=== PATIENT | male | born 1970 | race Caucasian/White ===

== ENCOUNTER 2017-11-22 21:50 | Inpatient (IN) | payer BC ==
[~2017-11-22] VITALS: Ht 175.3 cm; Wt 109.0 kg
[2017-11-22 21:54] VITALS: BP_SYST 125; PULSE 88; RESP 24; TEMP 97.6; O2SAT 98
[2017-11-22] MEDS ORDERED: SODIUM CHLOR 0.9% 1000 ML INJ 1,000 ML IV SCH (22:14)
[2017-11-22] MEDS ORDERED: ACETAMINOPHEN/HYDROcodone 325 MG/5 MG TAB PO ONE (22:15)
[2017-11-22] MEDS ORDERED: ONDANSETRON HCL 4 MG/2 ML VIAL IVP ONE (22:15)
[2017-11-22] MEDS ORDERED: KETOROLAC TROMETHAMINE 30 MG/ML (IVP) VIAL IV PUSH ONE (22:15)
--- NOTE | 2017-11-22 22:34 | PD ---
HPI Chief Complaint: Abdominal Pain Time Seen by Provider: 22:08 Travel History International Travel<30 days: No Contact w/Intl Traveler<30days: No Traveled to known affect area: No History of Present Illness HPI 47-year-old male that presents to the ED for evaluation of abdominal pain and possible kidney stone. Per patient his had bouts of this in the past. The patient is a history of kidney stones. Per patient he is patent with no issues. Per patient has had about 4 or this episodes in the past 2-1/2 months. Per patient he never got checked for the last 3 but this time she was concerned because he was running low of his Lortab which is prescribed for another condition. Per patient he is supposed to follow with her neurologist and actually is scheduled to have a CAT scan tomorrow to evaluate for his possible kidney stones. He states that currently his pain is 10 out of 10 as this mainly on the abdomen but mainly on the left side. Per patient he also lost in the flank. He denies any history of diverticulitis or any history of recent surgeries to the abdomen. No chest pain. No shortness of breath. Per patient he was concerned also because he started feeling nauseous and vomited a couple times. No bowel movement issues. No urinary issues. She does have a history of diabetes. Has no allergies to medication. Other medical issues at this time. Per patient pain is sharp. Nothing alleviates the pain at this time. PFSH Past Medical History Anxiety: Yes Depression: Yes High Cholesterol: Yes Diabetes: Yes Patient Takes Glucophage: No Diminished Hearing: Yes (DIMINISHED L EAR) Hypertension: Yes Kidney Stones: Yes Triglycerides - High: Yes Tetanus Vaccination: Unknown Influenza Vaccination: No Past Surgical History Cholecystectomy: Yes Ear Surgery: Yes (TUBES, CYST REMOVED AND BONES RECONSTRUCTED L EAR) Oral Surgery: Yes (WISDOM TEETH) Tonsillectomy: Yes Social History Alcohol Use: Yes (RARELY) Tobacco Use: No Substance Use: No Allergies-Medications (Allergen,Severity, Reaction): Coded Allergies: No Known Allergies (Unverified , 11/22/17) Reported Meds & Prescriptions Reported Meds & Active Scripts Active Reported Vascepa (Icosapent) 1 Gram Cap 2 Gm PO BID Lyrica (Pregabalin) 75 Mg Cap 75 Mg PO DAILY Losartan (Losartan Potassium) 25 Mg Tab 25 Mg PO DAILY Glyxambi (Empagliflozin-Linagliptin) 25-5 Mg Tab 1 Tab PO DAILY Hydrocodone-Acetaminophen 7.5-300 Mg Tab 1 Tab PO Q6H PRN Pramipexole (Pramipexole Dihydrochloride) 1 Mg Tab 1 Mg PO HS Pramipexole (Pramipexole Dihydrochloride) 0.5 Mg Tab 0.5 Mg PO DAILY Citalopram (Citalopram Hydrobromide) 40 Mg Tab 40 Mg PO HS Glimepiride 4 Mg Tab 4 Mg PO DAILY Take with breakfast or first main meal Atorvastatin (Atorvastatin Calcium) 10 Mg Tab 10 Mg PO HS Atenolol 50 Mg Tab 50 Mg PO BID Review of Systems Except as stated in HPI: all other systems reviewed are Neg Physical Exam Narrative GENERAL: SKIN: Warm and dry. HEAD: Atraumatic. Normocephalic. EYES: Pupils equal and round. No scleral icterus. No injection or drainage. ENT: No nasal bleeding or discharge. Mucous membranes pink and moist. Tongue is midline. No uvula deviation. NECK: Trachea midline. No JVD. CARDIOVASCULAR: Regular rate and rhythm. No murmurs, S3, S4. RESPIRATORY: No accessory muscle use. Clear to auscultation. Breath sounds equal bilaterally. GASTROINTESTINAL: Abdomen soft, non-tender, nondistended. Hepatic and splenic margins not palpable. No obvious CVA tenderness. MUSCULOSKELETAL: Extremities without clubbing, cyanosis, or edema. No obvious deformities. Full range of motion of the upper and lower extremities bilaterally. 2+ pulses bilaterally. NEUROLOGICAL: Awake and alert. No obvious cranial nerve deficits. Motor grossly within normal limits. Five out of 5 muscle strength in the arms and legs. Normal speech. PSYCHIATRIC: Appropriate mood and affect; insight and judgment normal. Data Data Last Documented VS Vital Signs Date Time Temp Pulse Resp B/P (MAP) Pulse Ox O2 Delivery O2 Flow Rate FiO2 11/22/17 21:54 97.6 88 24 125/ 98 Orders Orders Complete Blood Count With Diff (11/22/17 22:14) Comprehensive Metabolic Panel (11/22/17 22:14) Lipase (11/22/17 22:14) Lactic Acid (11/22/17 22:14) Urinalysis - C+S If Indicated (11/22/17 22:14) Ct Abd/Pel W/O Iv Contrast (11/22/17 22:14) Iv Access Insert/Monitor (11/22/17 22:14) Ecg Monitoring (11/22/17 22:14) Ondansetron Inj (Zofran Inj) (11/22/17 22:15) Sodium Chlor 0.9% 1000 Ml Inj (Ns 1000 M (11/22/17 22:14) Acetamin-Hydrocod 325-5 Mg ([place] 5-325 (11/22/17 22:15) Ketorolac Inj (Toradol Inj) (11/22/17 22:15) Morphine Inj (Morphine Inj) (11/22/17 23:00) Morphine Inj (Morphine Inj) (11/22/17 23:45) Admit Order (Ed Use Only) (11/23/17 ) Duty Manager / Telemetry BENJAMIN.Q8H (11/23/17 00:04) Diet Npo (11/23/17 Breakfast) Activity Bed Rest (11/23/17 00:04) Notify Dr: Other (11/23/17 00:04) Sodium Chlor 0.9% 1000 Ml Inj (Ns 1000 M (11/23/17 00:15) Thyroid Stimulating Hormone (11/22/17 22:40) Labs Laboratory Tests Test 11/22/17 22:40 White Blood Count 15.6 TH/MM3 Red Blood Count 5.02 MIL/MM3 Hemoglobin 16.0 GM/DL Hematocrit 42.4 % Mean Corpuscular Volume 84.6 FL Mean Corpuscular Hemoglobin 31.8 PG Mean Corpuscular Hemoglobin Concent 37.6 % Red Cell Distribution Width 14.9 % Platelet Count 390 TH/MM3 Mean Platelet Volume 7.2 FL Neutrophils (%) (Auto) 68.2 % Lymphocytes (%) (Auto) 20.8 % Monocytes (%) (Auto) 7.6 % Eosinophils (%) (Auto) 2.0 % Basophils (%) (Auto) 1.4 % Neutrophils # (Auto) 10.7 TH/MM3 Lymphocytes # (Auto) 3.2 TH/MM3 Monocytes # (Auto) 1.2 TH/MM3 Eosinophils # (Auto) 0.3 TH/MM3 Basophils # (Auto) 0.2 TH/MM3 CBC Comment AUTO DIFF Differential Total Cells Counted 100 Neutrophils % (Manual) 67 % Band Neutrophils % 3 % Lymphocytes % 14 % Monocytes % 9 % Eosinophils % 5 % Basophils % 1 % Neutrophils # (Manual) 11.1 TH/MM3 Myelocytes 1 % Differential Comment FINAL DIFF MANUAL Platelet Estimate NORMAL Platelet Morphology Comment NORMAL Red Cell Morphology Comment NORMAL Urine Color YELLOW Urine Turbidity CLEAR Urine pH 8.0 Urine Specific [place] 1.038 Urine Protein TRACE mg/dL Urine Glucose (UA) 1000 mg/dL Urine Ketones 40 mg/dL Urine Occult Blood NEG Urine Nitrite NEG Urine Bilirubin NEG Urine Urobilinogen LESS THAN 2.0 MG/DL Urine Leukocyte Esterase NEG Urine RBC LESS THAN 1 /hpf Urine WBC LESS THAN 1 /hpf Microscopic Urinalysis Comment CULT NOT INDICATED Blood Urea Nitrogen 14 MG/DL Creatinine 0.91 MG/DL Random Glucose 335 MG/DL Total Protein 7.7 GM/DL Albumin 3.7 GM/DL Calcium Level 8.8 MG/DL Alkaline Phosphatase 101 U/L Aspartate Amino Transf (AST/SGOT) 86 U/L Alanine Aminotransferase (ALT/SGPT) 81 U/L Total Bilirubin 0.6 MG/DL Sodium Level 132 MEQ/L Potassium Level 4.0 MEQ/L Chloride Level 96 MEQ/L Carbon Dioxide Level 21.2 MEQ/L Anion Gap 15 MEQ/L Estimat Glomerular Filtration Rate 89 ML/MIN Lactic Acid Level 1.7 mmol/L Triglycerides Level 2627 MG/DL Cholesterol Level 500 MG/DL LDL Cholesterol MG/DL HDL Cholesterol 29.0 MG/DL Cholesterol/HDL Ratio 17.24 RATIO Lipase 04634 U/L Thyroid Stimulating Hormone 3rd Gen 5.440 uIU/ML [facility] Medical Decision Making Medical Screen Exam Complete: Yes Emergency Medical Condition: Yes Medical Record Reviewed: Yes Differential Diagnosis Acute abdomen versus pancreatitis versus diverticulitis versus colitis versus kidney stone versus ureterolithiasis versus kidney infection Narrative Course 47-year-old male that presents to the ED for evaluation of possible kidney stone. Labs and imaging were ordered. Patient agrees for us to proceed. Patient preferred not to have morphine IV and he referred to have a Lortab instead as he doesn't feel that he needs to take high-dose of narcotics. He was given Toradol and Zofran. He was given IV fluids. Labs and imaging still pending at the writing of this note. Case signed out to my attending pending dispo and treatment plan. Vince Keen Nov 22, 2017 22:34
--- NOTE | 2017-11-22 22:41 | RADRPT ---
EXAM DATE/TIME: 11/22/2017 22:22 [place] COMPARISON: No previous studies available for comparison. INDICATIONS : Left flank pain; rule out renal calculi. ORAL CONTRAST: No oral contrast ingested. RADIATION DOSE: 25.59 CTDIvol (mGy) ; Patient body habitus MEDICAL HISTORY : Diabetes mellitus type 2. Hypertension. Hypercholesterolemia. SURGICAL HISTORY : Cholecystectomy. ENCOUNTER: Initial ACUITY: 1 day PAIN SCALE: 8/10 LOCATION: Left flank TECHNIQUE: Volumetric scanning of the abdomen and pelvis was performed. Using automated exposure control and ad justment of the mA and/or kV according to patient size, radiation dose was kept as low as reasonably achievable to obtain optimal diagnostic quality images. DICOM format image data is available electro nically for review and comparison. FINDINGS: LOWER LUNGS: The visualized lower lungs are clear. LIVER: The liver is enlarged and appears diffusely hypodense. Post cholecystectomy clips are noted. SPLEEN: Normal size without lesion. PANCREAS: Pancreatic and peripancreatic increased density characteristic of inflammation is noted. There are no focal pancreatic masses or cysts. KIDNEYS: Normal in size and shape. There is no mass, stone, or hydronephrosis. Small cysts are identified in each kidney. ADRENAL GLANDS: Within normal limits. VASCULAR: There is no aortic aneurysm. BOWEL/MESENTERY: The stomach, small bowel, and colon demonstrate no acute abnormality. There is no free intraperitone al air or fluid. ABDOMINAL WALL: Within normal limits. RETROPERITONEUM: There is no lymphadenopathy. BLADDER: No wall thickening or mass. REPRODUCTIVE: Within normal limits. INGUINAL: There is no lymphadenopathy or hernia. MUSCULOSKELETAL: Within normal limits for patient age. CONCLUSION: 1. Acute pancreatitis 2. Hepatomegaly with diffuse steatosis 3. Status post cholecystectomy 4. No evidence of nephrolithiasis or hydronephrosis. Chung Dolan MD on November 22, 2017 at 22:36 Board Certified Radiologist. This report was verified electronically.
[2017-11-22 22:48] LABS: AUTOMATED NEUTROPHIL # 10.7 TH/MM3 (1.8-7.7); BASOPHIL # 0.2 TH/MM3 (0-0.2); BASOPHIL % 1.4 % (0.0-2.0); EOSINOPHIL # 0.3 TH/MM3 (0-0.4); HEMATOCRIT 42.4 % (39.0-51.0); LYMPH % 20.8 % (9.0-44.0); LYMPHOCYTE # 3.2 TH/MM3 (1.0-4.8); MEAN CELL VOLUME 84.6 FL (80.0-100.0); MEAN CORPUSCULAR HEMOGLOBIN 31.8 PG (27.0-34.0); MEAN PLATELET VOLUME 7.2 FL (7.0-11.0); MONO % 7.6 % (0.0-8.0); MONOCYTE # 1.2 TH/MM3 (0-0.9); NEUT % 68.2 % (16.0-70.0); PLATELET COUNT 390 TH/MM3 (150-450); RED BLOOD COUNT 5.02 MIL/MM3 (4.50-5.90); RED CELL DISTRIBUTION WIDTH 14.9 % (11.6-17.2); WHITE BLOOD COUNT 15.6 TH/MM3 (4.0-11.0)
[2017-11-22 22:49] LABS: BILIRUBIN, URINE NEG (NEG); BLOOD, URINE NEG (NEG); GLUCOSE,URINE 1000 mg/dL (NEG); KETONE, URINE 40 mg/dL (NEG); NITRITE,URINE NEG (NEG); URINE COLOR YELLOW (YELLW/STRAW); URINE LEUKOCYTE ESTERASE NEG (NEG)
[2017-11-22 22:52] LABS: MEAN CORPUSCULAR HGB CONC 37.6 % (32.0-36.0)
[2017-11-22] MEDS ORDERED: ICOS1CAP PO ×4 (23:00→23:03)
[2017-11-22] MEDS ORDERED: CITA40TA4 PO (23:00)
[2017-11-22] MEDS ORDERED: EMPA1TAB5 PO (23:00)
[2017-11-22] MEDS ORDERED: MORPHINE SULFATE 2 MG/ML INJ IV PUSH ONE ×2 (23:00→23:45)
[2017-11-22] MEDS ORDERED: LOSA25TA PO (23:00)
[2017-11-22] MEDS ORDERED: PRAM0.5T PO (23:00)
[2017-11-22] MEDS ORDERED: LYRI75CA PO (23:00)
[2017-11-22] MEDS ORDERED: GLIM4TAB PO (23:00)
[2017-11-22] MEDS ORDERED: PRAM1TAB PO (23:00)
[2017-11-22] MEDS ORDERED: HYDR-2376 PO (23:00)
[2017-11-22] MEDS ORDERED: ATEN50TA PO (23:00)
[2017-11-22] MEDS ORDERED: ATOR10TA15 PO (23:00)
[2017-11-22 23:24] LABS: BANDS 3 % (0-6); BASOPHILS 1 % (0-2); LYMPHOCYTES 14 % (9-44); MONOCYTES 9 % (0-8); MYELOCYTES 1 % (0-0); NEUTROPHIL # MANUAL DIFF 11.1 TH/MM3 (1.8-7.7); POLYS (SEG NEUTROPHILS) 67 % (16-70)
[2017-11-23] VITALS (9 sets, daily range): BP systolic 116–134; BP diastolic 63–74; PULSE 70–93; RESP 12–29; TEMP 97.7–99.5; O2SAT 92–100
[2017-11-23] MEDS ORDERED: SODIUM CHLOR 0.9% 1000 ML INJ 1,000 ML IV SCH (00:03)
[2017-11-23] MEDS ORDERED: MAGNESIUM HYDROXIDE SUSP 30 ML CUP PO PRN (00:15)
[2017-11-23] MEDS ORDERED: SODIUM CHLOR 0.9% 1000 ML INJ 1,000 ML IV ONE (00:15)
[2017-11-23] MEDS ORDERED: MORPHINE SULFATE 2 MG/ML INJ IV PUSH PRN (00:15)
[2017-11-23] MEDS ORDERED: BISACODYL 10 MG SUPP RECTAL PRN (00:15)
[2017-11-23] MEDS ORDERED: SENNOSIDES 8.6 MG TAB PO PRN (00:15)
[2017-11-23] MEDS ORDERED: LACTULOSE SYRUP 20 GM/30 ML CUP PO PRN (00:15)
[2017-11-23] MEDS ORDERED: SODIUM CHLORIDE 0.9% FLUSH 10 ML FLUSH IV FLUSH PRN (00:15)
[2017-11-23] MEDS ORDERED: ACETAMINOPHEN 325 MG TAB PO PRN (00:15)
[2017-11-23 00:41] LABS: ALBUMIN 3.7 GM/DL (3.4-5.0); BICARBONATE 21.2 MEQ/L (21.0-32.0); CALCIUM 8.8 MG/DL (8.5-10.1); CHLORIDE 96 MEQ/L (98-107); CREATININE 0.91 MG/DL (0.60-1.30); GLOMERULAR FILTRATION RATE 89 ML/MIN (>89); GLUCOSE,RANDOM 335 MG/DL (74-106); SODIUM (NA) 132 MEQ/L (136-145)
[2017-11-23 00:42] LABS: BLOOD UREA NITROGEN 14 MG/DL (7-18)
[2017-11-23 00:43] LABS: ALKALINE PHOSPHATASE 101 U/L (45-117); LIPASE 12592 U/L (73-393); TOTAL BILIRUBIN ADULT 0.6 MG/DL (0.2-1.0); TOTAL PROTEIN 7.7 GM/DL (6.4-8.2)
[2017-11-23] MEDS: PIPERACIL-TAZO 4.5 GM PREMIX 100 ML IV SCH ×5 (00:49→23:20)
[2017-11-23] MEDS: FAMOTIDINE 20 MG/2 ML VIAL IV PUSH SCH ×3 (00:53→23:20)
--- NOTE | 2017-11-23 00:54 | PD ---
Physical Exam Date Seen by Provider: Nov 23, 2017 Time Seen by Provider: 23:30 Narrative Accepted in transfer of care GENERAL: Well-developed well-nourished male in no acute distress no respiratory distress SKIN: Warm and dry. HEAD: Normocephalic. EYES: No scleral icterus. No injection or drainage. NECK: Supple, trachea midline. No JVD or lymphadenopathy. CARDIOVASCULAR: Regular rate and rhythm without murmurs, gallops, or rubs. RESPIRATORY: Breath sounds equal bilaterally. No accessory muscle use. GASTROINTESTINAL: Abdomen soft, epigastric and supraumbilical tenderness to palpation without guarding or rebound nondistended. MUSCULOSKELETAL: No cyanosis, or edema. BACK: Nontender without obvious deformity. No CVA tenderness. Data Data Last Documented VS Vital Signs Date Time Temp Pulse Resp B/P (MAP) Pulse Ox O2 Delivery O2 Flow Rate FiO2 11/22/17 21:54 97.6 88 24 125/ 98 Orders Orders Complete Blood Count With Diff (11/22/17 22:14) Comprehensive Metabolic Panel (11/22/17 22:14) Lipase (11/22/17 22:14) Lactic Acid (11/22/17 22:14) Urinalysis - C+S If Indicated (11/22/17 22:14) Ct Abd/Pel W/O Iv Contrast (11/22/17 22:14) Iv Access Insert/Monitor (11/22/17 22:14) Ecg Monitoring (11/22/17 22:14) Ondansetron Inj (Zofran Inj) (11/22/17 22:15) Sodium Chlor 0.9% 1000 Ml Inj (Ns 1000 M (11/22/17 22:14) Acetamin-Hydrocod 325-5 Mg ([place] 5-325 (11/22/17 22:15) Ketorolac Inj (Toradol Inj) (11/22/17 22:15) Morphine Inj (Morphine Inj) (11/22/17 23:00) Morphine Inj (Morphine Inj) (11/22/17 23:45) Admit Order (Ed Use Only) (11/23/17 ) [place] [employer] Attendant / Telemetry BENJAMIN.Q8H (11/23/17 00:04) Diet Npo (11/23/17 Breakfast) Activity Bed Rest (11/23/17 00:04) Notify Dr: Other (11/23/17 00:04) Sodium Chlor 0.9% 1000 Ml Inj (Ns 1000 M (11/23/17 00:15) Thyroid Stimulating Hormone (11/22/17 22:40) Labs Laboratory Tests Test 11/22/17 22:40 White Blood Count 15.6 TH/MM3 Red Blood Count 5.02 MIL/MM3 Hemoglobin 16.0 GM/DL Hematocrit 42.4 % Mean Corpuscular Volume 84.6 FL Mean Corpuscular Hemoglobin 31.8 PG Mean Corpuscular Hemoglobin Concent 37.6 % Red Cell Distribution Width 14.9 % Platelet Count 390 TH/MM3 Mean Platelet Volume 7.2 FL Neutrophils (%) (Auto) 68.2 % Lymphocytes (%) (Auto) 20.8 % Monocytes (%) (Auto) 7.6 % Eosinophils (%) (Auto) 2.0 % Basophils (%) (Auto) 1.4 % Neutrophils # (Auto) 10.7 TH/MM3 Lymphocytes # (Auto) 3.2 TH/MM3 Monocytes # (Auto) 1.2 TH/MM3 Eosinophils # (Auto) 0.3 TH/MM3 Basophils # (Auto) 0.2 TH/MM3 CBC Comment AUTO DIFF Differential Total Cells Counted 100 Neutrophils % (Manual) 67 % Band Neutrophils % 3 % Lymphocytes % 14 % Monocytes % 9 % Eosinophils % 5 % Basophils % 1 % Neutrophils # (Manual) 11.1 TH/MM3 Myelocytes 1 % Differential Comment FINAL DIFF MANUAL Platelet Estimate NORMAL Platelet Morphology Comment NORMAL Red Cell Morphology Comment NORMAL Urine Color YELLOW Urine Turbidity CLEAR Urine pH 8.0 Urine Specific [place] 1.038 Urine Protein TRACE mg/dL Urine Glucose (UA) 1000 mg/dL Urine Ketones 40 mg/dL Urine Occult Blood NEG Urine Nitrite NEG Urine Bilirubin NEG Urine Urobilinogen LESS THAN 2.0 MG/DL Urine Leukocyte Esterase NEG Urine RBC LESS THAN 1 /hpf Urine WBC LESS THAN 1 /hpf Microscopic Urinalysis Comment CULT NOT INDICATED Blood Urea Nitrogen 14 MG/DL Creatinine 0.91 MG/DL Random Glucose 335 MG/DL Total Protein 7.7 GM/DL Albumin 3.7 GM/DL Calcium Level 8.8 MG/DL Alkaline Phosphatase 101 U/L Total Bilirubin 0.6 MG/DL Sodium Level 132 MEQ/L Potassium Level 4.0 MEQ/L Chloride Level 96 MEQ/L Carbon Dioxide Level 21.2 MEQ/L Anion Gap 15 MEQ/L Estimat Glomerular Filtration Rate 89 ML/MIN Lipase 07971 U/L [facility] Medical Record Reviewed: Yes Supervised Visit with PADMAJA: Yes Interpretation(s) Last Impressions Abdomen/Pelvis CT 11/22/172213 Signed Impressions: Service Date/Time: Wednesday, November 22, 2017 22:22 - CONCLUSION: 1. Acute pancreatitis 2. Hepatomegaly with diffuse steatosis 3. Status post cholecystectomy 4. No evidence of nephrolithiasis or hydronephrosis. Chung Dolan MD CBC & BMP Diagram 11/22/17 22:40 Total Protein 7.7, Albumin 3.7, Calcium Level 8.8, Alkaline Phosphatase 101, Total Bilirubin 0.6 Vital Signs Date Time Temp Pulse Resp B/P (MAP) Pulse Ox O2 Delivery O2 Flow Rate FiO2 11/22/17 21:54 97.6 88 24 125/ 98 Differential Diagnosis Abdominal pain, pancreatitis, choledocholithiasis, gastritis, peptic ulcer disease, atypical diverticulitis, ACS, [place], aortic dissection Narrative Course Accepted in transfer of care patient and placed on monitoring analyst EKG shows no acute injury pattern or ST segment elevation CT abdomen and pelvis identifies patient to have acute pancreatitis without evidence of free fluid hydronephrosis or hydroureter; mild leukocytosis lipase is pending secondary to hyperlipidemic serum specimen Patient aware of plan for admission and is agreeable. Patient reports that he has had 4 episodes similar to this in the last month since the end and thought he was having kidney stone symptoms. Patient is agreeable to admission for bowel rest IV fluids nothing by mouth and pain management Patient's case discussed with on-call medicine for admission for acute pancreatitis with history of hypertriglyceridemia. Physician Communication Physician Communication discussed with and accepted by Dr Clemons Diagnosis Primary Impression: Acute pancreatitis Admitting Information Admitting Physician Requests: Admit Mana Kenny MD Nov 23, 2017 00:54
[2017-11-23 01:21] LABS: AST (GOT) 86 U/L (15-37)
--- NOTE | 2017-11-23 01:41 | HHI.HP ---
[facility]Staff Admission Diagnosis acute pancreatitis Diagnoses: (1) Acute pancreatitis Diagnosis: Principal (2) Intractable abdominal pain Diagnosis: Principal (3) Leukocytosis Diagnosis: Principal (4) DM (diabetes mellitus) Diagnosis: Principal Travel History International Travel<30 Days: No Contact w/Intl Traveler <30 Da: No Traveled to Known Affected Are: No History of Present Illness This is a 47-year-old male with a PMH of Anxiety, Depression, HTN, Renal Stones , Hypertriglyceridemia and DM who presents to the ER with complaints of epigastric/LUQ abdominal pain x2 days. Pain is sharp, constant, non-radiating, severe, 10/10. Associated w/ subjective fever/chills and nausea, but no vomiting. Initially thought pain secondary to renal stone, seen by PCP today and was referred for CT Scan which is scheduled for tomorrow, however pain more severe he decided to come to ER. States this is 4th episode of similar symptoms in the last 2 months. Previously found to have Pancreatitis and significantly elevated triglycerides, was prescribed Atorvastatin and Vascepa but didn't start Vascepa as insurance wouldn't cover. Not following w/ GI. Vitals stable. WBC 15.6. Chemistry essentially unremarkable except for BS 335. Lipase 12,592. CT Abd/Pelvis w/ acute pancreatitis. S/p multiple doses of Morphine IV for pain control w/ some improvement. Review of Systems Except as stated in HPI: all other systems reviewed are Neg ROS: 14 point review of systems otherwise negative. Past Family Social History Past Medical History PMH: Anxiety, Depression, HTN, Renal Stones, Hypertriglyceridemia and DM Past Surgical History PAST SURGICAL HISTORY: Cholecystectomy, Left Ear Surgery, [place] Teeth, Tonsillectomy Allergies: Coded Allergies: No Known Allergies (Unverified , 11/22/17) Family History PAST FAMILY HISTORY: Reviewed, positive for DM Social History PAST SOCIAL HISTORY: Occasional alcohol. Negative for tobacco or drugs. Physical Exam Vital Signs Vital Signs Date Time Temp Pulse Resp B/P (MAP) Pulse Ox O2 Delivery O2 Flow Rate FiO2 11/23/17 01:21 11/23/17 00:57 77 16 122/67 (85) 96 Room Air 11/22/17 21:54 97.6 88 24 125/ 98 Physical Exam PE: GENERAL: Very pleasant middle-aged white male in no acute distress. at bedside HEENT: PERRLA, EOMI. No scleral icterus or conjunctival pallor. No lid lag or facial droop. CARDIOVASCULAR: Regular rate and rhythm. No obvious murmurs to auscultation. No chest tenderness to palpation. RESPIRATORY: No obvious rhonchi or wheezing. Clear to auscultation. Breath sounds equal bilaterally. GASTROINTESTINAL: Abdomen soft, mild epigastric tenderness to palpation, nondistended. BS normal. MUSCULOSKELETAL: Extremities without clubbing, cyanosis, or edema. No obvious deformities. NEUROLOGICAL: Awake, alert and oriented x4. No focal neurologic deficits. Moving both upper and lower extremities spontaneously. Laboratory Laboratory Tests Test 11/22/17 22:40 White Blood Count 15.6 Red Blood Count 5.02 Hemoglobin 16.0 Hematocrit 42.4 Mean Corpuscular Volume 84.6 Mean Corpuscular Hemoglobin 31.8 Mean Corpuscular Hemoglobin Concent 37.6 Red Cell Distribution Width 14.9 Platelet Count 390 Mean Platelet Volume 7.2 Neutrophils (%) (Auto) 68.2 Lymphocytes (%) (Auto) 20.8 Monocytes (%) (Auto) 7.6 Eosinophils (%) (Auto) 2.0 Basophils (%) (Auto) 1.4 Neutrophils # (Auto) 10.7 Lymphocytes # (Auto) 3.2 Monocytes # (Auto) 1.2 Eosinophils # (Auto) 0.3 Basophils # (Auto) 0.2 CBC Comment AUTO DIFF Differential Total Cells Counted 100 Neutrophils % (Manual) 67 Band Neutrophils % 3 Lymphocytes % 14 Monocytes % 9 Eosinophils % 5 Basophils % 1 Neutrophils # (Manual) 11.1 Myelocytes 1 Differential Comment FINAL DIFF MANUAL Platelet Estimate NORMAL Platelet Morphology Comment NORMAL Red Cell Morphology Comment NORMAL Urine Color YELLOW Urine Turbidity CLEAR Urine pH 8.0 Urine Specific [place] 1.038 Urine Protein TRACE Urine Glucose (UA) 1000 Urine Ketones 40 Urine Occult Blood NEG Urine Nitrite NEG Urine Bilirubin NEG Urine Urobilinogen LESS THAN 2.0 Urine Leukocyte Esterase NEG Urine RBC LESS THAN 1 Urine WBC LESS THAN 1 Microscopic Urinalysis Comment CULT NOT INDICATED Blood Urea Nitrogen 14 Creatinine 0.91 Random Glucose 335 Total Protein 7.7 Albumin 3.7 Calcium Level 8.8 Alkaline Phosphatase 101 Aspartate Amino Transf (AST/SGOT) 86 Total Bilirubin 0.6 Sodium Level 132 Potassium Level 4.0 Chloride Level 96 Carbon Dioxide Level 21.2 Anion Gap 15 Estimat Glomerular Filtration Rate 89 Triglycerides Level 2627 HDL Cholesterol 29.0 Lipase 22445 Thyroid Stimulating Hormone 3rd Gen 5.440 Result Diagram: 11/22/17223911/22/172239 Caprini VTE Risk Assessment Caprini VTE Risk Assessment: No/Low Risk (score <= 1) Caprini Risk Assessment Model Point Value = 1 Point Value = 2 Point Value = 3 Point Value = 5 Age 41-60 Minor surgery BMI > 25 kg/m2 Swollen legs Varicose veins or History of unexplained or recurrent spontaneous Oral contraceptives or hormone replacement Sepsis (< 1 month) Serious lung disease, including pneumonia (< 1 month) Abnormal pulmonary function Acute myocardial infarction Congestive heart failure (< 1 month) History of inflammatory bowel disease Medical patient at bed rest Age 61-74 Arthroscopic surgery Major open surgery (> 45 min) Laparoscopic surgery (> 45 min) Malignancy Confined to bed (> 72 hours) Immobilizing plaster cast Central venous access Age >= 75 History of VTE Family history of VTE Factor V Leiden Prothrombin [id number] Lupus anticoagulant Anticardiolipin antibodies Elevated serum homocysteine Heparin-induced thrombocytopenia Other congenital or acquired thrombophilia Stroke (< 1 month) Elective arthroplasty Hip, pelvis, or leg fracture Acute spinal cord injury (< 1 month) Prophylaxis Regimen Total Risk Factor Score Risk Level Prophylaxis Regimen 0-1 Low Early ambulation 2 Moderate Order ONE of the following: *Sequential Compression Device (SCD) *Heparin 5000 units SQ BID 3-4 Higher Order ONE of the following medications: *Heparin 5000 units SQ TID *Enoxaparin/Lovenox 40 mg SQ daily (WT < 150 kg, CrCl > 30 mL/min) *Enoxaparin/Lovenox 30 mg SQ daily (WT < 150 kg, CrCl > 10-29 mL/min) *Enoxaparin/Lovenox 30 mg SQ BID (WT < 150 kg, CrCl > 30 mL/min) AND/OR *Sequential Compression Device (SCD) 5 or more Highest Order ONE of the following medications: *Heparin 5000 units SQ TID (Preferred with Epidurals) *Enoxaparin/Lovenox 40 mg SQ daily (WT < 150 kg, CrCl > 30 mL/min) *Enoxaparin/Lovenox 30 mg SQ daily (WT < 150 kg, CrCl > 10-29 mL/min) *Enoxaparin/Lovenox 30 mg SQ BID (WT < 150 kg, CrCl > 30 mL/min) AND *Sequential Compression Device (SCD) Assessment and Plan Problem List: (1) Acute pancreatitis ICD Code: K85.90 - Acute pancreatitis without necrosis or infection, unspecified Status: Acute (2) Intractable abdominal pain ICD Code: R10.9 - Unspecified abdominal pain (3) Leukocytosis ICD Code: D72.829 - Elevated white blood cell count, unspecified (4) DM (diabetes mellitus) ICD Code: E11.9 - Type 2 diabetes mellitus without complications Assessment and Plan A/P: 1. Acute Pancreatitis: likely secondary to significant hypertriglyceridemia, Check Lipid Profile. Lipase 12,592. CT Abd/Pelvis w/ acute pancreatitis, images reviewed by me. Reports 4th episode in 2 months, resume home Vascepa/ Atorvastatin. Check Hgb A1c, TSH. Consult GI for further evaluation. NPO, Clear liquids, Pepcid IV. 2. Intractable Abd Pain: secondary to above, s/p multiple doses of Morphine IV in ER w/ some improvement. Continue analgesics/antiemetics as needed. 3. Leukocytosis: WBC 15.6. Afebrile. In light of recurrent pancreatitis w/ significantly elevated lipase and leukocytosis, will start on empiric treatment w/ Zosyn IV. Repeat labs in am. 4. DM: Uncontrolled, secondary to recurrent pancreatitis. Check Hgb A1c. Hold PO antihyperglycemics as pt will be NPO. Sliding scale w/ Accu-Cheks. 5. DVT Prophylaxis: SCD/Teds 6. Social work for d/c planning as needed. 7. Labs/records/imaging reviewed. Case discussed w/ ER physician at length. Physician Certification 2 Midnight Certification Type: Admission for Inpatient Services Order for Inpatient Services The services are ordered in accordance with Medicare regulations or non- Medicare payer requirements, as applicable. In the case of services not specified as inpatient-only, they are appropriately provided as inpatient services in accordance with the 2-midnight benchmark. Estimated LOS (days): 2 days is the estimated time the patient will need to remain in the hospital, assuming treatment plan goals are met and no additional complications. Post-Hospital Plan: Not yet determined Isabel Clemons MD Nov 23, 2017 01:41
[2017-11-23] MEDS: ATENOLOL 50 MG TAB PO SCH ×3 (01:51→20:55)
[2017-11-23] MEDS: PRAMIPEXOLE DIHYDROCHLORIDE 1 MG TAB PO SCH ×2 (01:51→20:55)
[2017-11-23] MEDS: CITALOPRAM HYDROBROMIDE 40 MG TAB PO SCH ×2 (01:51→20:55)
[2017-11-23] MEDS: MORPHINE SULFATE 2 MG/ML INJ IV PUSH PRN ×3 (01:54→21:48)
[2017-11-23 02:08] LABS: ALT (GPT) 81 U/L (12-78)
[2017-11-23 02:19] LABS: CHOLESTEROL/ HDL RATIO 17.24 RATIO
[2017-11-23] MEDS ORDERED: INSULIN ASPART SUPPLEMENTAL SCALE SQ SCH (08:00)
[2017-11-23] MEDS ORDERED: GLUCAGON 1 MG/ML VIAL OTHER PRN (08:00)
[2017-11-23] MEDS ORDERED: DEXTROSE 50% IN WATER 50 ML VIAL(D50) IV PUSH PRN ×2 (08:00→08:30)
[2017-11-23] MEDS: SODIUM CHLORIDE 0.9% FLUSH 10 ML FLUSH IV FLUSH SCH ×2 (08:18→20:50)
[2017-11-23] MEDS: PREGABALIN 75 MG CAP PO SCH (08:19)
[2017-11-23] MEDS: LOSARTAN 25 MG TAB PO SCH (08:19)
[2017-11-23] MEDS: PRAMIPEXOLE DIHYDROCHLORIDE 0.25 MG TAB PO SCH (08:19)
[2017-11-23] MEDS: DOCUSATE SODIUM 50 MG/SENNA 8.6 MG TAB PO SCH ×2 (08:19→20:55)
[2017-11-23] MEDS: HEPARIN SODIUM - SQ 10,000 UNITS/ML VIAL SQ SCH ×2 (08:19→20:55)
[2017-11-23] MEDS ORDERED: MISC INFORMATION OTHER ONE (08:30)
--- NOTE | 2017-11-23 08:54 | HHI.PR ---
Subjective Remarks Follow up on patient with epigastric pain. Patient seen and examined. Patient states his pain is controlled with the Morphine. He endorses diagnoses of DM several years ago with poor treatment per his omission. BS run high 100s to 300s. He has begun to have numbness in the fingertips. Patient on Glimepiride and Glyxambi at home. He has an upcoming appointment with phys therapist. States his grandmother had hypertriglyceridemia. He denies any other medical complaints. Denies any fever or chills. Denies any nausea or vomiting. Abdominal pain controlled at present. Denies any hematuria or dysuria. Denies any black/bloody/tarry stools. Denies any diarrhea. Reports normal bowel movement yesterday. Objective Vitals Vital Signs Date Time Temp Pulse Resp B/P (MAP) Pulse Ox O2 Delivery O2 Flow Rate FiO2 11/23/17 05:48 97.7 92 24 116/66 (83) 97 11/23/17 01:59 16 11/23/17 01:21 11/23/17 00:57 77 16 122/67 (85) 96 Room Air 11/22/17 21:54 97.6 88 24 125/ 98 I/O 11/22/17 11/22/17 11/22/17 11/23/17 11/23/17 11/23/17 07:00 15:00 23:00 07:00 15:00 23:00 Intake Total 1000 ml 100 ml Output Total 200 ml 200 ml Balance 800 ml -100 ml Intake IV Total 1000 ml 100 ml Output Urine Total 200 ml 200 ml # Voids 1 Result Diagram: 11/22/17223911/22/172239 Imaging Last Impressions Abdomen/Pelvis CT 11/22/172213 Signed Impressions: Service Date/Time: Wednesday, November 22, 2017 22:22 - CONCLUSION: 1. Acute pancreatitis 2. Hepatomegaly with diffuse steatosis 3. Status post cholecystectomy 4. No evidence of nephrolithiasis or hydronephrosis. Chung Dolan MD Objective Remarks GENERAL: Well-nourished, well-developed overweight male patient in NAD. Awake and alert. Sitting up in bed. Appears comfortable. SKIN: Warm and dry. No rash. HEAD: Normocephalic. Atraumatic. EYES: Pupils equal and round. No scleral icterus. No injection or drainage. ENT: No nasal bleeding or discharge. Mucous membranes pink and moist. NECK: Supple. Trachea midline. CARDIOVASCULAR: Regular rate and rhythm. S1, S2 noted. No murmur appreciated. RESPIRATORY: Nonlabored. Clear to auscultation. Breath sounds equal bilaterally. GASTROINTESTINAL: Abdomen soft, nondistended. (+)Mild epigastric pain. Normoactive bowel sounds x4. MUSCULOSKELETAL: No obvious deformities. Extremities without clubbing, cyanosis , or edema. NEUROLOGICAL: Awake and alert. Motor and sensory function grossly within normal limits. Nonfocal. Normal speech. PSYCHIATRIC: Appropriate mood and affect; insight and judgment normal. Medications and IVs Current Medications Medications (Trade) Dose Ordered Sig/Lauryn Route Start Time Stop Time Status Last Admin (Pepcid Inj) 20 mg Q12H IV PUSH 11/23/17 00:15 11/23/17 00:53 (NS Flush) 2 ml UNSCH PRN IV FLUSH 11/23/17 00:15 (NS Flush) 2 ml BID IV FLUSH 11/23/17 09:00 (Zofran Inj) 4 mg Q6H PRN IVP 11/23/17 00:15 (Heparin Inj) 5,000 units Q12H SQ 11/23/17 09:00 11/23/17 08:19 (Tylenol) 650 mg Q6H PRN PO 11/23/17 00:15 (Morphine Inj) 1 mg Q3H PRN IV PUSH 11/23/17 00:15 (Morphine Inj) 2 mg Q3H PRN IV PUSH 11/23/17 00:15 11/23/17 06:46 (Bhakti-Colace) 1 tab BID PO 11/23/17 09:00 11/23/17 08:19 (Milk Of Magnesia Liq) 30 ml Q12H PRN PO 11/23/17 00:15 (Senokot) 17.2 mg Q12H PRN PO 11/23/17 00:15 (Dulcolax Supp) 10 mg DAILY PRN RECTAL 11/23/17 00:15 (Lactulose Liq) 30 ml DAILY PRN PO 11/23/17 00:15 Piperacillin Sod/ Tazobactam Sod 100 ml @ 200 mls/hr Q6H IV 11/23/17 00:15 11/23/17 06:31 (Cozaar) 25 mg DAILY PO 11/23/17 09:00 11/23/17 08:19 (Lyrica) 75 mg DAILY PO 11/23/17 09:00 11/23/17 08:19 Patient Own Medication PT OWN MED: VASCEPA... BID PO 11/23/17 09:00 (Mirapex) 0.5 mg DAILY PO 11/23/17 09:00 11/23/17 08:19 (Tenormin) 50 mg BID PO 11/23/17 01:15 11/23/17 08:19 (CeleXA) 40 mg HS PO 11/23/17 01:15 11/23/17 01:51 (Mirapex) 1 mg HS PO 11/23/17 01:15 11/23/17 01:51 (D50w (Vial) Inj) 50 ml UNSCH PRN IV PUSH 11/23/17 08:00 (Glucagon Inj) 1 mg UNSCH PRN OTHER 11/23/17 08:00 (NovoLOG SUPPLEMENTAL SCALE) 1 ACHS SLIDING SCALE SQ 11/23/17 08:00 Insulin Human Regular 100 units/ Sodium Chloride 100 ml @ 0.5 mls/hr TITRATE PRN IV 11/23/17 08:30 UNV (D50w (Vial) Inj) 50 ml UNSCH PRN IV PUSH 11/23/17 08:30 UNV Miscellaneous Information 1 ONCE ONCE OTHER 11/23/17 08:30 11/23/17 08:31 UNV Dextrose 1,000 ml @ 75 mls/hr [id number] IV 11/23/17 08:45 UNV A/P Problem List: (1) Acute pancreatitis ICD Code: K85.90 - Acute pancreatitis without necrosis or infection, unspecified Status: Acute (2) Intractable abdominal pain ICD Code: R10.9 - Unspecified abdominal pain (3) Leukocytosis ICD Code: D72.829 - Elevated white blood cell count, unspecified (4) DM (diabetes mellitus) ICD Code: E11.9 - Type 2 diabetes mellitus without complications Assessment and Plan Severe hypertriglyceridemia Triglyceride level 2627 Patient has samples only of Vascepa at home - Insulin drip per protocol. IVF D5W. - serial triglyceride levels Acute Pancreatitis: secondary to severe hypertriglyceridemia, Lipase 12,592. Abdominal pain Patient reports 4th episode in 2 months - CT Abd/Pelvis w/ acute pancreatitis, no focal pancreatic masses or cysts, hepatomegaly with steatosis - Hgb A1c pending, TSH ok. - NPO for now - GI following, appreciate recommendations - trend lipase level - pain management Leukocytosis: WBC 15.6. Afebrile. In light of recurrent pancreatitis w/ significantly elevated lipase and leukocytosis, will start on empiric treatment w/ Zosyn IV. - Continue IV Zosyn - Repeat labs pending DM: Uncontrolled, secondary to recurrent pancreatitis. - Hgb A1c 13.1 - Hold PO antihyperglycemics as pt will be NPO. - accucheks per Insulin gtt protocol Hyponatremia: Secondary to hyperosmolar hyperglycemic state - BS control - monitor DVT Prophylaxis: Lovenox sq Attending Statement patient was seen and examined today. complaining of mild abdominal pain. will continue with supportive care with analgesics and antiemetics as needed. will start on insulin drip due to hypertriglyceridemia. GI consulted. rest of assessment and plan as noted above. Judie Maravilla Nov 23, 2017 08:54 Roque Hyman MD Nov 23, 2017 09:54
[2017-11-23] MEDS ORDERED: VASCEPA 1 GM PO SCH (09:00)
[2017-11-23] MEDS ORDERED: INSULIN REGULAR (IV INFUSION) 100 UNITS in SODIUM CHLORIDE 0.9% INJ 99 ML IV PRN (09:00)
[2017-11-23] MEDS ORDERED: ATENOLOL 50 MG TAB PO SCH (09:00)
--- NOTE | 2017-11-23 09:53 | PD.CONS ---
HPI History of Present Illness This is a 47 year old male with HLD, DMII who presented with abd pain, n/v. This is is 4th episode of pain in the last 3 months. Abd pain is epigastric and in LUQ but spreads to flanks. Pain is constant with exacerbations and he experienced a worsening last night, along with n/v. Previously he thought it was kidney stones and self medicated with pain meds. He has hx high cholesterol and triglycerides, was recently started on atorvastatin and vacsepa but has had difficulty getting approval from insurance for the vacsepa. Denies blood in emesis, change in bowel habits. Admitted his diabetes is poorly controlled. (Sue Díaz) PFSH Past Medical History PMH: Anxiety, Depression, HTN, Renal Stones, Hypertriglyceridemia and DM Past Surgical History PAST SURGICAL HISTORY: Cholecystectomy, Left Ear Surgery, [place] Teeth, Tonsillectomy (Sue Díaz) Coded Allergies: No Known Allergies (Unverified , 11/22/17) Family History PAST FAMILY HISTORY: Reviewed, positive for DM Social History PAST SOCIAL HISTORY: Occasional alcohol. Negative for tobacco or drugs. (Sue Díaz) Review of Systems Constitutional: DENIES: Fever, Weight loss Endocrine: DENIES: Polydipsia Eyes: DENIES: Blurred vision Respiratory: DENIES: Cough Cardiovascular: DENIES: Chest pain Gastrointestinal: COMPLAINS OF: Abdominal pain, Nausea, Vomiting, DENIES: Black stools, Bloody stools, Constipation, Diarrhea, Hematemesis Genitourinary: DENIES: Hematuria Musculoskeletal: DENIES: Joint Swelling Integumentary: DENIES: Jaundice Hematologic/lymphatic: DENIES: Bruising Immunologic/allergic: DENIES: Eczema Neurologic: DENIES: Abnormal gait Psychiatric: DENIES: Confusion (Sue Díaz) GI Exam Vitals I&O Vital Signs Date Time Temp Pulse Resp B/P (MAP) Pulse Ox O2 Delivery O2 Flow Rate FiO2 11/23/17 08:00 98.2 89 18 119/69 (86) 92 11/23/17 05:48 97.7 92 24 116/66 (83) 97 11/23/17 01:59 16 11/23/17 01:21 11/23/17 00:57 77 16 122/67 (85) 96 Room Air 11/22/17 21:54 97.6 88 24 125/ 98 I/O 11/22/17 11/22/17 11/22/17 11/23/17 11/23/17 11/23/17 07:00 15:00 23:00 07:00 15:00 23:00 Intake Total 1000 ml 100 ml Output Total 200 ml 200 ml Balance 800 ml -100 ml Intake IV Total 1000 ml 100 ml Output Urine Total 200 ml 200 ml # Voids 1 Imaging Last Impressions Abdomen/Pelvis CT 11/22/174 Signed Impressions: Service Date/Time: Wednesday, November 22, 2017 22:22 - CONCLUSION: 1. Acute pancreatitis 2. Hepatomegaly with diffuse steatosis 3. Status post cholecystectomy 4. No evidence of nephrolithiasis or hydronephrosis. Chung Dolan MD Laboratory Test 11/22/17 22:40 White Blood Count 15.6 TH/MM3 Red Blood Count 5.02 MIL/MM3 Hemoglobin 16.0 GM/DL Hematocrit 42.4 % Mean Corpuscular Volume 84.6 FL Mean Corpuscular Hemoglobin 31.8 PG Mean Corpuscular Hemoglobin Concent 37.6 % Red Cell Distribution Width 14.9 % Platelet Count 390 TH/MM3 Mean Platelet Volume 7.2 FL Neutrophils (%) (Auto) 68.2 % Lymphocytes (%) (Auto) 20.8 % Monocytes (%) (Auto) 7.6 % Eosinophils (%) (Auto) 2.0 % Basophils (%) (Auto) 1.4 % Neutrophils # (Auto) 10.7 TH/MM3 Lymphocytes # (Auto) 3.2 TH/MM3 Monocytes # (Auto) 1.2 TH/MM3 Eosinophils # (Auto) 0.3 TH/MM3 Basophils # (Auto) 0.2 TH/MM3 CBC Comment AUTO DIFF Differential Total Cells Counted 100 Neutrophils % (Manual) 67 % Band Neutrophils % 3 % Lymphocytes % 14 % Monocytes % 9 % Eosinophils % 5 % Basophils % 1 % Neutrophils # (Manual) 11.1 TH/MM3 Myelocytes 1 % Differential Comment FINAL DIFF MANUAL Platelet Estimate NORMAL Platelet Morphology Comment NORMAL Red Cell Morphology Comment NORMAL Urine Color YELLOW Urine Turbidity CLEAR Urine pH 8.0 Urine Specific [place] 1.038 Urine Protein TRACE mg/dL Urine Glucose (UA) 1000 mg/dL Urine Ketones 40 mg/dL Urine Occult Blood NEG Urine Nitrite NEG Urine Bilirubin NEG Urine Urobilinogen LESS THAN 2.0 MG/DL Urine Leukocyte Esterase NEG Urine RBC LESS THAN 1 /hpf Urine WBC LESS THAN 1 /hpf Microscopic Urinalysis Comment CULT NOT INDICATED Blood Urea Nitrogen 14 MG/DL Creatinine 0.91 MG/DL Random Glucose 335 MG/DL Total Protein 7.7 GM/DL Albumin 3.7 GM/DL Calcium Level 8.8 MG/DL Alkaline Phosphatase 101 U/L Aspartate Amino Transf (AST/SGOT) 86 U/L Alanine Aminotransferase (ALT/SGPT) 81 U/L Total Bilirubin 0.6 MG/DL Sodium Level 132 MEQ/L Potassium Level 4.0 MEQ/L Chloride Level 96 MEQ/L Carbon Dioxide Level 21.2 MEQ/L Anion Gap 15 MEQ/L Estimat Glomerular Filtration Rate 89 ML/MIN Lactic Acid Level 1.7 mmol/L Triglycerides Level 2627 MG/DL Cholesterol Level 500 MG/DL LDL Cholesterol MG/DL HDL Cholesterol 29.0 MG/DL Cholesterol/HDL Ratio 17.24 RATIO Lipase 41059 U/L Thyroid Stimulating Hormone 3rd Gen 5.440 uIU/ML Physical Examination HEENT: PERRL; normocephalic; atraumatic; no jaundice. CHEST: CTA CARDIAC: RRR ABDOMEN: Soft, obese, mild TTP LUQ and epigastrium; no hepatosplenomegaly; bowel sounds are present in all four quadrants. EXTREMITIES: No clubbing, cyanosis, or edema. SKIN: Normal; no rash; no jaundice. STONE SETTER METAL OPTICAL FRAMES: No focal deficits; alert and oriented times three. (Sue Díaz) Assessment and Plan Plan ASSESSMENT - abd pain, n/v - hypertriglyride induced pancreatitis. triglycerides 2600, lipase 12,[address] shows acute pancreatitis wlevated WBC 15k on admission. hx HLD takes atorvastatin and vacsepa, started these meds last week. will be started on insulin drip per primary PLAN - insulin gtt per primary - NPO - IVF - rck lipase, triglycerides - consider fibrate, frannie if pt unable to get Vacsepa - better control DM - lifestyle changes - supportive care This pt seen by myself and Dr Ocasio and this note is written on her behalf (Sue Díaz) Physician Comments seen, examined agree with above needs strict control of triglycerides, glucose mrcp in am -if agrees states he is claustrophobic, will think about it, also may need sedation we will advance diet to clears in am would like to go home tomorrow am if tolerated food -ok to dc home in am with close fu with gi weight loss, low fat diet (Nadja Ocasio MD) Sue Díaz Nov 23, 2017 09:53 Nadja Ocasio MD Nov 23, 2017 18:21
[2017-11-23 10:18] LABS: HEMOGLOBIN A1C 13.1 % (4.3-6.0)
[2017-11-23] MEDS: DEXTROSE 5% IN WATE 1000ML INJ 1,000 ML IV SCH ×2 (10:27→22:39)
[2017-11-23] MEDS: ONDANSETRON HCL 4 MG/2 ML VIAL IVP PRN ×2 (11:22→22:47)
[2017-11-23 14:42] LABS: BASOPHIL # 0.1 TH/MM3 (0-0.2); BASOPHIL % 0.6 % (0.0-2.0); EOSINOPHIL # 0.1 TH/MM3 (0-0.4); EOSINOPHIL % 1.3 % (0.0-4.0); HEMATOCRIT 37.6 % (39.0-51.0); HEMOGLOBIN 13.5 GM/DL (13.0-17.0); LYMPH % 18.9 % (9.0-44.0); LYMPHOCYTE # 2.1 TH/MM3 (1.0-4.8); MEAN CELL VOLUME 86.6 FL (80.0-100.0); MEAN CORPUSCULAR HGB CONC 35.8 % (32.0-36.0); MEAN PLATELET VOLUME 7.3 FL (7.0-11.0); MONO % 6.3 % (0.0-8.0); MONOCYTE # 0.7 TH/MM3 (0-0.9); NEUT % 72.9 % (16.0-70.0); PLATELET COUNT 296 TH/MM3 (150-450); RED BLOOD COUNT 4.34 MIL/MM3 (4.50-5.90); RED CELL DISTRIBUTION WIDTH 15.1 % (11.6-17.2)
[2017-11-23] MEDS ORDERED: PRAMIPEXOLE DIHYDROCHLORIDE 1 MG TAB PO SCH (21:00)
[2017-11-23] MEDS ORDERED: CITALOPRAM HYDROBROMIDE 40 MG TAB PO SCH (21:00)
[2017-11-24] VITALS (8 sets, daily range): BP systolic 107–125; BP diastolic 61–74; PULSE 86–93; RESP 12–22; TEMP 98.4–100; O2SAT 94–97
[2017-11-24 05:10] LABS: AUTOMATED NEUTROPHIL # 7.4 TH/MM3 (1.8-7.7); BASOPHIL # 0.1 TH/MM3 (0-0.2); BASOPHIL % 0.6 % (0.0-2.0); EOSINOPHIL # 0.2 TH/MM3 (0-0.4); EOSINOPHIL % 2.2 % (0.0-4.0); HEMATOCRIT 36.9 % (39.0-51.0); HEMOGLOBIN 13.3 GM/DL (13.0-17.0); LYMPH % 20.6 % (9.0-44.0); LYMPHOCYTE # 2.2 TH/MM3 (1.0-4.8); MEAN CELL VOLUME 86.4 FL (80.0-100.0); MEAN CORPUSCULAR HEMOGLOBIN 31.1 PG (27.0-34.0); MEAN PLATELET VOLUME 7.5 FL (7.0-11.0); MONO % 7.9 % (0.0-8.0); MONOCYTE # 0.8 TH/MM3 (0-0.9); NEUT % 68.7 % (16.0-70.0); PLATELET COUNT 326 TH/MM3 (150-450); RED BLOOD COUNT 4.27 MIL/MM3 (4.50-5.90); RED CELL DISTRIBUTION WIDTH 15.3 % (11.6-17.2); WHITE BLOOD COUNT 10.7 TH/MM3 (4.0-11.0)
[2017-11-24 05:16] LABS: ALKALINE PHOSPHATASE 107 U/L (45-117)
[2017-11-24] MEDS: PIPERACIL-TAZO 4.5 GM PREMIX 100 ML IV SCH ×2 (05:32→11:30)
[2017-11-24 06:22] LABS: AST (GOT) 37 U/L (15-37); BLOOD UREA NITROGEN 10 MG/DL (7-18); CALCIUM 7.8 MG/DL (8.5-10.1); CREATININE 0.57 MG/DL (0.60-1.30); GLOMERULAR FILTRATION RATE 152 ML/MIN (>89); GLUCOSE,RANDOM 198 MG/DL (74-106); TOTAL PROTEIN 7.1 GM/DL (6.4-8.2)
[2017-11-24 06:23] LABS: ALT (GPT) 65 U/L (12-78); BICARBONATE 21.6 MEQ/L (21.0-32.0); CHLORIDE 98 MEQ/L (98-107); LIPASE 755 U/L (73-393); SODIUM (NA) 131 MEQ/L (136-145)
[2017-11-24] MEDS: ATENOLOL 50 MG TAB PO SCH (08:07)
[2017-11-24] MEDS: LOSARTAN 25 MG TAB PO SCH (08:08)
[2017-11-24] MEDS: DOCUSATE SODIUM 50 MG/SENNA 8.6 MG TAB PO SCH (08:08)
[2017-11-24] MEDS: PREGABALIN 75 MG CAP PO SCH (08:08)
[2017-11-24] MEDS: SODIUM CHLORIDE 0.9% FLUSH 10 ML FLUSH IV FLUSH SCH (08:09)
[2017-11-24] MEDS: HEPARIN SODIUM - SQ 10,000 UNITS/ML VIAL SQ SCH (08:09)
[2017-11-24] MEDS: PRAMIPEXOLE DIHYDROCHLORIDE 0.25 MG TAB PO SCH (09:00)
[2017-11-24] MEDS: FAMOTIDINE 20 MG/2 ML VIAL IV PUSH SCH (11:30)
--- NOTE | 2017-11-24 12:32 | HHI.DCPOC ---
Discharge Care Plan Diagnosis: (1) Hypertriglyceridemia (2) Acute pancreatitis Goals to Promote Your Health * To prevent worsening of your condition and complications * To maintain your health at the optimal level Directions to Meet Your Goals Take your medications as prescribed Follow your dietary instruction Follow activity as directed Keep your appointments as scheduled Take your immunizations and boosters as scheduled If your symptoms worsen call your PCP, if no PCP go to Urgent Care Center or Emergency Room Smoking is Dangerous to Your Health. Avoid second hand smoke Call the 24-hour hour crisis hotline for domestic abuse at Carolin Pope MD Nov 24, 2017 12:32
--- NOTE | 2017-11-24 12:38 | HHI.GIFU ---
Subjective Remarks Pt is OOB in chair. Reports tolerating clear liquids. Denies nausea, vomiting. Some mild abdominal pain, but states improvement from yesterday. (Esther George) Objective Vitals I&O Vital Signs Date Time Temp Pulse Resp B/P (MAP) Pulse Ox O2 Delivery O2 Flow Rate FiO2 11/24/17 10:00 86 11/24/17 08:00 100.0 89 21 125/74 (91) 94 11/24/17 08:00 89 11/24/17 07:00 94 Room Air 11/24/17 06:00 88 11/24/17 04:00 86 11/24/17 04:00 99.0 86 22 118/68 (85) 94 11/24/17 02:00 86 11/24/17 00:00 98.4 93 12 110/61 (77) 96 11/24/17 00:00 88 11/23/17 22:00 92 11/23/17 21:53 14 11/23/17 20:00 99.5 93 12 134/74 (94) 96 11/23/17 20:00 93 11/23/17 19:00 99 Room Air 11/23/17 18:00 90 11/23/17 16:00 97.8 86 16 116/63 (80) 95 11/23/17 16:00 70 11/23/17 14:00 92 I/O 11/23/17 11/23/17 11/23/17 11/24/17 11/24/17 11/24/17 06:59 14:59 22:59 06:59 14:59 22:59 Intake Total 1000 ml 100 ml 1678 ml 100 ml Output Total 200 ml 200 ml 1400 ml 1100 ml Balance 800 ml -100 ml 278 ml -1000 ml Intake Oral 0 ml IV Total 1000 ml 100 ml 1668 ml 100 ml Other 10 ml Output Urine Total 200 ml 200 ml 1400 ml 1100 ml # Voids 1 # Bowel Movements 0 0 Laboratory Laboratory Tests Test 11/23/17 13:53 11/23/17 23:12 11/24/17 04:15 11/24/17 11:20 White Blood Count 11.0 10.7 Red Blood Count 4.34 4.27 Hemoglobin 13.5 13.3 Hematocrit 37.6 36.9 Mean Corpuscular Volume 86.6 86.4 Mean Corpuscular Hemoglobin 31.0 31.1 Mean Corpuscular Hemoglobin Concent 35.8 36.0 Red Cell Distribution Width 15.1 15.3 Platelet Count 296 326 Mean Platelet Volume 7.3 7.5 Neutrophils (%) (Auto) 72.9 68.7 Lymphocytes (%) (Auto) 18.9 20.6 Monocytes (%) (Auto) 6.3 7.9 Eosinophils (%) (Auto) 1.3 2.2 Basophils (%) (Auto) 0.6 0.6 Neutrophils # (Auto) 8.0 7.4 Lymphocytes # (Auto) 2.1 2.2 Monocytes # (Auto) 0.7 0.8 Eosinophils # (Auto) 0.1 0.2 Basophils # (Auto) 0.1 0.1 CBC Comment DIFF FINAL AUTO DIFF Differential Comment AUTO DIFF CONFIRMED Triglycerides Level 2313 1965 Blood Urea Nitrogen 10 Creatinine 0.57 Random Glucose 198 Total Protein 7.1 Albumin 3.0 Calcium Level 7.8 Alkaline Phosphatase 107 Aspartate Amino Transf (AST/SGOT) 37 Alanine Aminotransferase (ALT/SGPT) 65 Total Bilirubin 1.0 Sodium Level 131 Potassium Level 3.8 Chloride Level 98 Carbon Dioxide Level 21.6 Anion Gap 11 Estimat Glomerular Filtration Rate 152 Lipase 755 Imaging Last Impressions Abdomen/Pelvis CT 11/22/174 Signed Impressions: Service Date/Time: Wednesday, November 22, 2017 22:22 - CONCLUSION: 1. Acute pancreatitis 2. Hepatomegaly with diffuse steatosis 3. Status post cholecystectomy 4. No evidence of nephrolithiasis or hydronephrosis. Chung Dolan MD Physical Exam HEENT: Normocephalic; atraumatic CHEST: Even/unlabored CARDIAC: RRR ABDOMEN: Soft, distended, mild upper abdominal tenderness, bowel sounds active EXTREMITIES: No clubbing, cyanosis, or edema. SKIN: Normal; no rash; no jaundice. TUBE WINDER: No focal deficits; alert and oriented times three. (Esther George) Assessment and Plan Plan ASSESSMENT - Pancreatitis secondary to hypertriglyceridemia. Pt has uncontrolled diabetes. Triglycerides 2600, lipase 12,[address] abdomen and pelvis W/O IV contrast (11/22) --> Acute pancreatitis. Hepatomegaly with diffuse steatosis. Status post cholecystectomy. No evidence of nephrolithiasis or hydronephrosis. Hx HLD takes atorvastatin and Vascepa, started these meds last week. Pt now on insulin gtt, per attending. Tolerating clear liquids. Lipase improving- now 755. LFTs WNL. PLAN - Insulin gtt per attending - Control hypertriglyceridemia - Monitor labs - If continues to tolerate clear liquids, may advance diet - OK to DC from GI standpoint if tolerating PO - Please have pt follow up with [facility] after discharge - May need MRCP- but can be done on an outpatient basis - Pain control - Supportive care This patient has been seen and examined by myself and Dr. Ocasio and this note is written on her behalf (Esther George) Esther George Nov 24, 2017 12:38 Nadja Ocasio MD Nov 24, 2017 18:55
--- NOTE | 2017-11-24 13:33 | HHI.DS ---
Discharge Summary Admission Date Nov 23, 2017 at 00:06 Discharge Date: Nov 24, 2017 Admitting Diagnosis acute pancreatitis (1) Acute pancreatitis ICD Code: K85.90 - Acute pancreatitis without necrosis or infection, unspecified Diagnosis: Principal Status: Acute (2) Leukocytosis ICD Code: D72.829 - Elevated white blood cell count, unspecified Diagnosis: Principal (3) DM (diabetes mellitus) ICD Code: E11.9 - Type 2 diabetes mellitus without complications Diagnosis: Secondary (4) Hypertriglyceridemia ICD Code: E78.1 - Pure hyperglyceridemia Diagnosis: Principal Procedures See hospital course. Brief History - From Admission This is a 47-year-old male with a PMH of Anxiety, Depression, HTN, Renal Stones , Hypertriglyceridemia and DM who presents to the ER with complaints of epigastric/LUQ abdominal pain x2 days. Pain is sharp, constant, non-radiating, severe, 10/10. Associated w/ subjective fever/chills and nausea, but no vomiting. Initially thought pain secondary to renal stone, seen by PCP today and was referred for CT Scan which is scheduled for tomorrow, however pain more severe he decided to come to ER. States this is 4th episode of similar symptoms in the last 2 months. Previously found to have Pancreatitis and significantly elevated triglycerides, was prescribed Atorvastatin and Vascepa but didn't start Vascepa as insurance wouldn't cover. Not following w/ GI. Vitals stable. WBC 15.6. Chemistry essentially unremarkable except for BS 335. Lipase 12,592. CT Abd/Pelvis w/ acute pancreatitis. S/p multiple doses of Morphine IV for pain control w/ some improvement. CBC/BMP: 11/24/17 0415 11/24/17 0415 Significant Findings Laboratory Tests Test 11/22/17 22:40 11/23/17 11:50 11/23/17 13:53 11/23/17 23:12 White Blood Count 15.6 TH/MM3 (4.0-11.0) Mean Corpuscular Hemoglobin Concent 37.6 % (32.0-36.0) Neutrophils # (Auto) 10.7 TH/MM3 (1.8-7.7) 8.0 TH/MM3 (1.8-7.7) Monocytes # (Auto) 1.2 TH/MM3 (0-0.9) Monocytes % 9 % (0-8) Eosinophils % 5 % (0-4) Neutrophils # (Manual) 11.1 TH/MM3 (1.8-7.7) Myelocytes 1 % (0-0) Urine Specific [place] 1.038 (1.002-1.035) Urine Glucose (UA) 1000 mg/dL (NEG) Urine Ketones 40 mg/dL (NEG) Random Glucose 335 MG/DL (74-106) Aspartate Amino Transf (AST/SGOT) 86 U/L (15-37) Alanine Aminotransferase (ALT/SGPT) 81 U/L (12-78) Sodium Level 132 MEQ/L (136-145) Chloride Level 96 MEQ/L (98-107) Hemoglobin A1c 13.1 % (4.3-6.0) Triglycerides Level 2627 MG/DL (42-150) 2957 MG/DL (42-150) 2313 MG/DL (42-150) Cholesterol Level 500 MG/DL (120-200) HDL Cholesterol 29.0 MG/DL (40.0-60.0) Lipase 58679 U/L (73-393) Thyroid Stimulating Hormone 3rd Gen 5.440 uIU/ML (0.358-3.740) Red Blood Count 4.34 MIL/MM3 (4.50-5.90) Hematocrit 37.6 % (39.0-51.0) Neutrophils (%) (Auto) 72.9 % (16.0-70.0) Test 11/24/17 04:15 11/24/17 11:20 Red Blood Count 4.27 MIL/MM3 (4.50-5.90) Hematocrit 36.9 % (39.0-51.0) Creatinine 0.57 MG/DL (0.60-1.30) Random Glucose 198 MG/DL (74-106) Albumin 3.0 GM/DL (3.4-5.0) Calcium Level 7.8 MG/DL (8.5-10.1) Sodium Level 131 MEQ/L (136-145) Lipase 755 U/L (73-393) Triglycerides Level 1965 MG/DL (42-150) Imaging Last Impressions Abdomen/Pelvis CT 11/22/17 7814 Signed Impressions: Service Date/Time: Wednesday, November 22, 2017 22:22 - CONCLUSION: 1. Acute pancreatitis 2. Hepatomegaly with diffuse steatosis 3. Status post cholecystectomy 4. No evidence of nephrolithiasis or hydronephrosis. Chung Dolan MD PE at Discharge GENERAL: Well-nourished, well-developed overweight male patient sitting in his chair and in no acute distress. CARDIOVASCULAR: Regular rate and rhythm. S1, S2 noted. No murmur appreciated. RESPIRATORY:Clear to auscultation. Breath sounds equal bilaterally. GASTROINTESTINAL: Abdomen soft, nondistended. Negative for any abdominal pain. Normoactive bowel sounds x4. MUSCULOSKELETAL: No obvious deformities. Extremities without clubbing, cyanosis , or edema. NEUROLOGICAL: Awake and alert. Motor and sensory function grossly within normal limits. Nonfocal. Normal speech. Pt update on day of discharge Follow-up for acute pancreatitis secondary to hypertriglyceridemia Patient asking to be discharged home at the moment. Patient denies any abdominal pain. He has not asked for any pain medication. Patient is tolerating his diet. Patient's nurse at the bedside during in the interview. Per GI MRCP was supposed to be done in AM but no order placed for AM. Order was placed in the afternoon in which I spoke to GI in regards to patient's request to be discharge and that he is tolerating his diet. Per GI okay to be discharge if he tolerates his diet. I also spoke to patient in regards to his medication for triglycerides. Patient stated that he is able to get the prescription now since he has new insurance and the insurance will cover it. He stated that he does not need any new medication. Hospital Course This is a 47-year-old male history of hypercholesterolemia and acute pancreatitis who presented with abdominal pain, nausea, and vomiting. Labs were obtained and a CT scan of the abdomen suggested that patient has pancreatitis. Triglycerides were in the 2000. Patient stated that he was not able to obtain his medication but he is able to obtain his medication now that he has new insurance. He was treated with supportive care with IV fluids and pain medication but his symptoms resolve quickly. He was also put on insulin drip. He did have a leukocytosis with low-grade fevers in which she was treated empirically with Zosyn. There are no source of infection so Zosyn was discontinued. Leukocytosis low-grade fever most likely secondary to pancreatitis. At the time of discharge patient was back to his baseline, asymptomatic, and tolerating his diet. GI was also consulted in which they wanted MRCP the next morning which was not done or ordered. Since patient clinically improved quickly and was asymptomatic MRCP was canceled and GI stated okay to discharge. I educated patient extensively on compliance with medication and he stated that this should not be a problem since he now has insurance that will cover his medication. Pt Condition on Discharge: Stable Discharge Disposition: Discharge Home Discharge Time: > 30 minutes Discharge Instructions DIET: Follow Instructions for: Heart Healthy Diet, Low Fat Diet Activities you can perform: Regular-No Restrictions Follow up Referrals: Gastroenterology - 1 Week with Nadja Ocasio MD PCP Follow-up - 1 Week Continued Medications: Atenolol (Atenolol) 50 Mg Tab 50 MG PO BID for Blood Pressure Management, #14 TAB 0 Refills Atorvastatin (Atorvastatin) 10 Mg Tab 10 MG PO HS for Cholesterol Management, #30 TAB 0 Refills Citalopram (Citalopram) 40 Mg Tab 40 MG PO HS for Control Depression, #30 TAB 0 Refills Empagliflozin-Linagliptin (Glyxambi) 25-5 Mg Tab 1 TAB PO DAILY for Blood Sugar Management, #30 TAB 0 Refills Glimepiride (Glimepiride) 4 Mg Tab 4 MG PO DAILY for Blood Sugar Management, #30 TAB 0 Refills Take with breakfast or first main meal Hydrocodone-Acetaminophen (Hydrocodone-Acetaminophen) 7.5-300 Mg Tab 1 TAB PO Q6H PRN for PAIN, TAB 0 Refills Icosapent (Vascepa) 1 Gram Cap 2 GM PO BID, #120 CAP 0 Refills Losartan (Losartan) 25 Mg Tab 25 MG PO DAILY for Blood Pressure Management, #30 TAB 0 Refills Pramipexole (Pramipexole) 0.5 Mg Tab 0.5 MG PO DAILY for Parkinson Disease Mgmt, #30 TAB 0 Refills Pramipexole (Pramipexole) 1 Mg Tab 1 MG PO HS for Parkinson Disease Mgmt, #30 TAB 0 Refills Pregabalin (Lyrica) 75 Mg Cap 75 MG PO DAILY, #30 CAP 0 Refills Carolin Pope MD Nov 24, 2017 13:33
== END 2017-11-24 15:50 | disposition home or self-care (01) | DRG 439 ==
LOC: NEPC 21:50 → NEDA 11-23 00:06 → NEPHCDU 11-23 01:37 → N03B 11-23 11:00
PROVIDERS: ADMIT Hospitalist; ATTEND Hospitalist
DX: K85.80 Other acute pancreatitis without necrosis or infection (principal); E87.1 Hypo-osmolality and hyponatremia; E11.65 Type 2 diabetes mellitus with hyperglycemia; K76.0 Fatty (change of) liver, not elsewhere classified; I10 Essential (primary) hypertension; E78.1 Pure hyperglyceridemia; K86.1 Other chronic pancreatitis; R16.0 Hepatomegaly, not elsewhere classified; E78.00 Pure hypercholesterolemia, unspecified; E78.5 Hyperlipidemia, unspecified; H91.92 Unspecified hearing loss, left ear; F32.9 Major depressive disorder, single episode, unspecified; F40.240 Claustrophobia; F41.9 Anxiety disorder, unspecified; Z79.84 Long term (current) use of oral hypoglycemic drugs
CPT/HCPCS: 74176; 80053; 80061; 81001; 82948; 83036; 83605; 83690; 84443; 84478; 85007; 85025; 85027; 96361; 96374; 96375; 96376; J1644; J1817; J1885; J2270; J2405; J2543; J7030; J7070